=== PATIENT | male | born 1995 | race Caucasian/White ===

== ENCOUNTER 2017-02-26 10:02 | Emergency (ER) | payer BC, OTHER ==
[2017-02-26] MEDS ORDERED: Bacitracin Zinc 1 Packet ONE (11:51)
--- NOTE | 2017-02-26 12:41 | RAD ---
THREE VIEWS 4TH DIGIT LEFT HAND: HISTORY: Trauma. FINDINGS: AP, lateral, and oblique views 4th digit left hand demonstrate no evidence of 4th digit fractures, s ubluxations, or bony lesions. IMPRESSION: Normal 3 views 4th digit left hand. POS: [facility]
== END 2017-02-26 12:02 | disposition home or self-care (01) ==
LOC: ERS 10:02
DX: S67.195A Crushing injury of left ring finger, initial encounter (principal); W23.0XXA Caught, crushed, jammed, or pinched between moving objects, initial encounter